=== PATIENT | female | born 1995 | race Caucasian/White ===

== ENCOUNTER 2017-02-02 17:07 | Emergency (ER) | payer SELFPAY ==
[~2017-02-02] VITALS: Ht 157.5 cm; Wt 80.0 kg
[2017-02-02 17:07] VITALS: BP 154/86; PULSE 55; RESP 12; TEMP 98.7; O2SAT 99
[2017-02-02] MEDS ORDERED: IOHEXOL 350 MG/ML 10 ML VIAL (for RAD DIAG) IVCONTRAST ONE (17:08)
--- NOTE | 2017-02-02 17:23 | PD ---
Physical Exam Date Seen by Provider: Feb 02, 2017 Time Seen by Provider: 17:22 Narrative 21 yo female here for abdominal pain and N/V. has had this since 1 pm. RLQ pain. Concerned for appendicitis. No Vaginal symptoms. Pain is 8/10. Vitals are stable in triage. Awaiting bed placement. Data Data Last Documented VS Vital Signs Date Time Temp Pulse Resp B/P (MAP) Pulse Ox O2 Delivery O2 Flow Rate FiO2 02/02/17 17:07 98.7 55 12 154/86 (108) 99 Room Air [facility] Medical Record Reviewed: Yes Supervised Visit with ARLETH: No Jesus Butts Feb 02, 2017 17:23
[2017-02-02] MEDS ORDERED: SODIUM CHLOR 0.9% 1000 ML INJ 1,000 ML IV SCH (18:32)
[2017-02-02] MEDS ORDERED: MORPHINE SULFATE 4 MG/ML INJ IV PUSH ONE (18:45)
[2017-02-02] MEDS ORDERED: SODIUM CHLORIDE 0.9% FLUSH 10 ML FLUSH IV FLUSH PRN (18:45)
[2017-02-02] MEDS ORDERED: ONDANSETRON HCL 4 MG/2 ML VIAL IVP ONE (18:45)
[2017-02-02 18:55] VITALS: O2SAT 100
[2017-02-02 19:30] VITALS: BP 112/74; PULSE 67; RESP 12; O2SAT 100
[2017-02-02 19:40] LABS: AUTOMATED NEUTROPHIL # 15.1 TH/MM3 (1.8-7.7); BASOPHIL % 0.2 % (0.0-2.0); HEMATOCRIT 40.1 % (35.0-46.0); HEMO FLAGS DIFF FINAL; LYMPH % 5.2 % (9.0-44.0); LYMPHOCYTE # 0.9 TH/MM3 (1.0-4.8); MEAN CELL VOLUME 90.6 FL (80.0-100.0); MEAN CORPUSCULAR HGB CONC 33.1 % (32.0-36.0); MONO % 2.6 % (0.0-8.0); PLATELET COUNT 209 TH/MM3 (150-450); RED BLOOD COUNT 4.42 MIL/MM3 (4.00-5.30); WHITE BLOOD COUNT 16.4 TH/MM3 (4.0-11.0)
[2017-02-02 19:41] LABS: ANION GAP 9 MEQ/L (5-15); AST (GOT) 12 U/L (15-37); BICARBONATE 24.5 MEQ/L (21.0-32.0); BLOOD UREA NITROGEN 11 MG/DL (7-18); CHLORIDE 106 MEQ/L (98-107); GLOMERULAR FILTRATION RATE 109 ML/MIN (>89); POTASSIUM 3.9 MEQ/L (3.5-5.1); SODIUM (NA) 139 MEQ/L (136-145)
[2017-02-02 19:42] LABS: ALT (GPT) 19 U/L (10-53)
[2017-02-02 19:44] LABS: ALKALINE PHOSPHATASE 54 U/L (45-117); TOTAL BILIRUBIN ADULT 0.7 MG/DL (0.2-1.0)
[2017-02-02 19:55] LABS: APTT (PATIENT) 25.2 SEC (24.3-30.1); PROTHROMBIN TIME - PATIENT 11.4 SEC (9.8-11.6)
[2017-02-02 20:12] LABS: BLOOD, URINE MOD (NEG); COMMENT (UR) CULT NOT INDICATED; CULTURE IF INDICATED CULT NOT INDICATED; GLUCOSE,URINE NEG (NEG); KETONE, URINE 40 mg/dL (NEG); NITRITE,URINE NEG (NEG); PH, URINE 7.5 (5.0-8.5); SQUAMOUS EPITHELIAL CELL URINE 1 /hpf (0-5); URINE COLOR LIGHT-YELLOW (YELLW/STRAW)
--- NOTE | 2017-02-02 20:16 | RADRPT ---
EXAM DATE/TIME: 02/02/2017 19:54 [place] COMPARISON: No previous studies available for comparison. INDICATIONS : Diffuse abdomen pain in right lower region. IV CONTRAST: 90 cc Omnipaque 350 (iohexol) IV ORAL CONTRAST: No oral contrast ingested. RADIATION DOSE: 8.38 CTDIvol (mGy) MEDICAL HISTORY : None SURGICAL HISTORY : None. ENCOUNTER: Initial ACUITY: 1 day PAIN SCALE: 4/10 LOCATION: Right lower quadrant TECHNIQUE: Volumetric scanning of the abdomen and pelvis was performed. Using automated exposure control and ad justment of the mA and/or kV according to patient size, radiation dose was kept as low as reasonably achievable to obtain optimal diagnostic quality images. DICOM format image data is available electro nically for review and comparison. FINDINGS: LOWER LUNGS: The visualized lower lungs are clear. LIVER: Homogeneous density without lesion. There is no dilation of the biliary tree. No calcified gallston es. SPLEEN: Normal size without lesion. PANCREAS: Within normal limits. KIDNEYS: Normal in size and shape. There is some mild prominence of the right collecting system. No calcified right or left renal stones are seen. There is a mild prominence of the right ureter. There appears to be a 2 mm calcification at the right UV junction suggestive of a tiny stone. The left collecting sys tem is unremarkable. ADRENAL GLANDS: Within normal limits. VASCULAR: There is no aortic aneurysm. BOWEL/MESENTERY: The stomach, small bowel, and colon demonstrate no acute abnormality. There is no free intraperitone al air. The appendix is unremarkable. Small amount of free fluid in the cul-de-sac. ABDOMINAL WALL: Within normal limits. RETROPERITONEUM: There is no lymphadenopathy. BLADDER: No wall thickening or mass. Tiny 2 mm stone at the right UVJ. There are calcified phleboliths in the pelvis bilaterally. REPRODUCTIVE: There is a trace of fluid in the cul-de-sac. The uterus is grossly unremarkable. INGUINAL: There is no lymphadenopathy or hernia. MUSCULOSKELETAL: Within normal limits for patient age. CONCLUSION: 1. There is a tiny 2 mm calcification of the right UVJ suggestive of a distal right ureteral calculus . There is mild prominence of the right collecting system. 2. There is a small amount of free fluid in the cul-de-sac. Donell Correia MD on February 02, 2017 at 20:09 Board Certified Radiologist. This report was verified electronically.
--- NOTE | 2017-02-02 20:36 | PD ---
HPI Chief Complaint: Abdominal Pain Time Seen by Provider: 19:35 Travel History International Travel<30 days: No Contact w/Intl Traveler<30days: No Traveled to known affect area: No History of Present Illness HPI 21-year-old female presents to the ED for evaluation of 8/10 right lower quadrant and right flank pain. Sudden onset at 1 PM today. Described as constant. Accompanied by nausea. Patient denies fevers, chills, vomiting, anorexia, dysuria, vaginal discharge, back pain. She endorses a single episode of loose stools this morning. LMP was the "second week of December." Endorses risk of . PFSH Past Medical History Medical History: Denies Significant Hx Influenza Vaccination: No ?: Not LMP: 12/2016 : 0 Para: 0 Past Surgical History Surgical History: No Previous Surgery Social History Alcohol Use: Yes (socially) Tobacco Use: Yes (2 ppd) Substance Use: Yes (marijuana) Allergies-Medications (Allergen,Severity, Reaction): Coded Allergies: No Known Allergies (Unverified , 02/02/17) Reported Meds & Prescriptions Reported Meds & Active Scripts Active Ibuprofen 600 Mg Tab 600 Mg PO Q8HR PRN Flomax (Tamsulosin HCl) 0.4 Mg Cap 0.4 Mg PO HS Review of Systems Except as stated in HPI: all other systems reviewed are Neg Physical Exam Narrative GENERAL: Well-nourished, well-developed female in no acute distress. SKIN: Focused skin assessment warm/dry. HEAD: Normocephalic. EYES: No scleral icterus. No injection or drainage. NECK: Supple, trachea midline. No JVD or lymphadenopathy. CARDIOVASCULAR: Regular rate and rhythm without murmurs, gallops, or rubs. RESPIRATORY: Breath sounds equal bilaterally. No accessory muscle use. GASTROINTESTINAL: Abdomen soft, nondistended. Mildly tender in the right lower quadrant, right flank. Negative Hernandez's, McBurney's, Rovsing's, psoas signs. MUSCULOSKELETAL: No cyanosis, or edema. BACK: Nontender without obvious deformity. No CVA tenderness. Data Data Last Documented VS Vital Signs Date Time Temp Pulse Resp B/P (MAP) Pulse Ox O2 Delivery O2 Flow Rate FiO2 02/02/17 19:30 67 12 112/74 (87) 100 Room Air 02/02/17 17:07 98.7 Orders Orders Complete Blood Count With Diff (02/02/17 18:32) Comprehensive Metabolic Panel (02/02/17:) Lipase (02/02/17:) Lactic Acid (02/02/17:) Prothrombin Time / Inr (Pt) (02/02/17:32) Act Partial Throm Time (Ptt) (02/02/17:) Urinalysis - C+S If Indicated (02/02/17:) Iv Access Insert/Monitor (02/02/17:32) Ecg Monitoring (02/02/17:) Oximetry (02/02/17:) NPO (02/02/17:) Morphine Inj (Morphine Inj) (02/02/17 18:45) Ondansetron Inj (Zofran Inj) (02/02/17 18:45) Sodium Chlor 0.9% 1000 Ml Inj (Ns 1000 M (02/02/17 18:32) Sodium Chloride 0.9% Flush (Ns Flush) (02/02/17 18:45) Ed Urine Pregnancytest Poc (02/02/17 18:32) Ct Abd/Pel W Iv Contrast(Rout) (02/02/17 19:35) Iohexol 350 Inj (Omnipaque 350 Inj) (02/02/17 17:08) Ed Discharge Order (02/02/17 20:50) Labs Laboratory Tests Test 02/02/17 19:05 02/02/17 19:45 White Blood Count 16.4 TH/MM3 Red Blood Count 4.42 MIL/MM3 Hemoglobin 13.3 GM/DL Hematocrit 40.1 % Mean Corpuscular Volume 90.6 FL Mean Corpuscular Hemoglobin 30.0 PG Mean Corpuscular Hemoglobin Concent 33.1 % Red Cell Distribution Width 15.0 % Platelet Count 209 TH/MM3 Mean Platelet Volume 11.2 FL Neutrophils (%) (Auto) 92.0 % Lymphocytes (%) (Auto) 5.2 % Monocytes (%) (Auto) 2.6 % Eosinophils (%) (Auto) 0.0 % Basophils (%) (Auto) 0.2 % Neutrophils # (Auto) 15.1 TH/MM3 Lymphocytes # (Auto) 0.9 TH/MM3 Monocytes # (Auto) 0.4 TH/MM3 Eosinophils # (Auto) 0.0 TH/MM3 Basophils # (Auto) 0.0 TH/MM3 CBC Comment DIFF FINAL Differential Comment Prothrombin Time 11.4 SEC Prothromb Time International Ratio 1.0 RATIO Activated Partial Thromboplast Time 25.2 SEC Blood Urea Nitrogen 11 MG/DL Creatinine 0.67 MG/DL Random Glucose 91 MG/DL Total Protein 7.2 GM/DL Albumin 3.9 GM/DL Calcium Level 9.1 MG/DL Alkaline Phosphatase 54 U/L Aspartate Amino Transf (AST/SGOT) 12 U/L Alanine Aminotransferase (ALT/SGPT) 19 U/L Total Bilirubin 0.7 MG/DL Sodium Level 139 MEQ/L Potassium Level 3.9 MEQ/L Chloride Level 106 MEQ/L Carbon Dioxide Level 24.5 MEQ/L Anion Gap 9 MEQ/L Estimat Glomerular Filtration Rate 109 ML/MIN Lactic Acid Level 1.0 mmol/L Lipase 60 U/L Urine Color LIGHT-YELLOW Urine Turbidity CLEAR Urine pH 7.5 Urine Specific [place] 1.007 Urine Protein NEG mg/dL Urine Glucose (UA) NEG mg/dL Urine Ketones 40 mg/dL Urine Occult Blood MOD Urine Nitrite NEG Urine Bilirubin NEG Urine Urobilinogen LESS THAN 2.0 MG/DL Urine Leukocyte Esterase SMALL Urine RBC 4 /hpf Urine WBC 1 /hpf Urine Squamous Epithelial Cells 1 /hpf Microscopic Urinalysis Comment CULT NOT INDICATED MDM Medical Decision Making Medical Screen Exam Complete: Yes Emergency Medical Condition: Yes Differential Diagnosis Pyelonephritis versus nephroureterolithiasis versus versus appendicitis versus other Narrative Course 21-year-old female presents to the ED for evaluation of one day history of right lower quadrant abdominal and right flank pain. Vitals reviewed. Physical exam reveals mild tenderness to palpation in the right lower quadrant. Rovsing's, McBurney's, psoas signs all negative. IV was established. Patient was administered 1 L normal saline, 4 mg morphine, 4 mg Zofran IV. CBC, leukocytosis of 16.4, suspect this is a stress reaction. CMP unremarkable. No culture indicated of the UA. ED urine emergency test negative. Lipase 60. Lactic 1. CT: A 2 mm stone at the right UVJ junction, mild dilatation of the collecting system per radiology read. On recheck the patient reports improvement in her symptoms. I discussed the results of the workup. Patient is prescribed Flomax, ibuprofen, instructed to take Flomax as prescribed, follow up with the urologist, return for worsening symptoms. She indicated understanding of the instructions and is agreeable with the care plan. Patient is stable and discharged home. Diagnosis Primary Impression: Right distal ureteral calculus Referrals: Celso Tolentino MD Patient Instructions: General Instructions, Ureteral Stones (ED) Additional Instructions: Rest, hydrate. Take medication as prescribed. Stop taking the medication is you SEE the stone in your urine. Follow up with the urologist this week. Return to the ED for worsening symptoms or any urgent or emergent medical condition. Med/Other Pt SpecificInfo: Prescription(s) given Scripts Ibuprofen (Ibuprofen) 600 Mg Tab 600 MG PO Q8HR Y for PAIN, #14 TAB 0 Refills Prov: Kinza Cintron MD 02/02/17 Tamsulosin (Flomax) 0.4 Mg Cap 0.4 MG PO HS for ureteral stone, #15 CAP 0 Refills Prov: Kinza Cintron MD 02/02/17 Disposition: 01 DISCHARGE HOME Condition: Stable Preeti Berumen Feb 02, 2017 20:36
[2017-02-02] MEDS ORDERED: TAMS5CAP PO (20:45)
[2017-02-02] MEDS ORDERED: IBUP-232 PO (20:50)
== END 2017-02-02 21:31 | disposition home or self-care (01) ==
LOC: NEPC 17:07
DX: N20.1 Calculus of ureter (principal); F17.210 Nicotine dependence, cigarettes, uncomplicated; F12.90 Cannabis use, unspecified, uncomplicated
CPT/HCPCS: 74177; 80053; 81001; 83605; 83690; 84703; 85025; 85610; 85730; 96374; 96375; 99285; J2270; J2405; J7030; Q9967